=== PATIENT | male | born 1955 | race Caucasian/White ===

== ENCOUNTER 2024-10-21 06:47 | Outpatient (CLI) | payer MEDICARE, OTHER, SELFPAY ==
--- NOTE | 2024-10-21 08:18 | P.ANES_ITS ---
Anesthesia Charges Start Date/Time Anesthesia Start Date: 10/21/24 Anesthesia Start Time: 07:52 Stop Date/Time Anesthesia Stop Date: 10/21/24 Anesthesia Stop Time: 08:14 Coding CPT Codes CPT Codes: ANES LWR INTST SCR COLSC - 83077 ([id number]) P1 - NORMAL HEALTHY PATIENT, QZ - WOOLEN SUITING SHRINKER SVC W/O MANAGER DATA CENTER BY
--- NOTE | 2024-10-21 08:18 | W.ANESCHARGE ---
Anesthesia Charges Start Date/Time Anesthesia Start Date: 10/21/24 Anesthesia Start Time: 07:52 Stop Date/Time Anesthesia Stop Date: 10/21/24 Anesthesia Stop Time: 08:14 Coding CPT Codes CPT Codes: ANES LWR INTST SCR COLSC - 32429 ([id number]) P1 - NORMAL HEALTHY PATIENT, QZ - SAMPLE DISTRIBUTOR SVC W/O SPECIAL EDUCATION CASE MANAGER BY
== END 2024-10-21 06:48 | disposition home or self-care (01) ==
LOC: OP CLINIC 06:54
PROVIDERS: PCP Student in an Organized Health Care Education/Training Program; Visit Provider Internal Medicine Gastroenterology
DX: Z12.11 Encounter for screening for malignant neoplasm of colon (principal)
CPT/HCPCS: 00812; 45378; J2704